=== PATIENT | male | born 1990 | race Caucasian/White ===

== ENCOUNTER 2020-07-18 14:26 | Emergency (ER) | payer SELFPAY ==
[~2020-07-18] VITALS: Ht 193 cm; Wt 88.5 kg
[2020-07-18 14:37] VITALS: BP 133/82
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
[2020-07-18] MEDS ORDERED: HYDROCODONE/APAP 5/325MG TABLET PO ONE (15:00)
[2020-07-18] MEDS ORDERED: HYDROCODONE/APAP 5/325MG TABLET ONE (15:18)
--- NOTE | 2020-07-18 15:22 | NUR ---
MEDICATED ORDERED,RADIOLOGY CALLED FOR X-RAY AND CT
--- NOTE | 2020-07-18 16:30 | NUR ---
Patient alert and oriented x4. Patient discharged to home in stable condition. Written and verbal after care instructions given. Patient verbalizes understanding of instruction.
== END 2020-07-18 16:30 | disposition home or self-care (01) ==
LOC: ER 14:30
DX: S05.11XA Contusion of eyeball and orbital tissues, right eye, initial encounter (principal); M25.512 Pain in left shoulder; M54.6 Pain in thoracic spine; Y04.0XXA Assault by unarmed brawl or fight, initial encounter; Y93.89 Activity, other specified; Y92.89 Other specified places as the place of occurrence of the external cause; Y99.8 Other external cause status
CPT/HCPCS: 70450-TC; 70486-TC; 72074-TC; 73030-TC

== ENCOUNTER 2020-07-21 09:22 | Emergency (ER) | payer SELFPAY ==
[~2020-07-21] VITALS: Ht 193 cm; Wt 90.7 kg
[2020-07-21] MEDS ORDERED: LORAZEPAM 1 MG TABLET PO ONE (09:30)
--- NOTE | 2020-07-21 09:30 | NUR ---
DR. MANJARREZ AT BEDSIDE FOR EVAL.
[2020-07-21] MEDS ORDERED: LORAZEPAM 1 MG TABLET ONE (09:32)
--- NOTE | 2020-07-21 09:38 | NUR ---
PATIENT A/OX4, IN NO DISTRESS. Patient discharged to home in stable condition. Written and verbal after care instructions given. Patient verbalizes understanding of instruction. RESOURCES PROVIDED BY DR. MANJARREZ FOR [facility].
[2020-07-21 09:39] VITALS: BP 162/102
== END 2020-07-21 09:40 | disposition home or self-care (01) ==
LOC: ER 09:24
DX: F41.9 Anxiety disorder, unspecified (principal)

== ENCOUNTER → 2020-10-18 | Emergency (ER) | payer SELFPAY ==
[~2020-10-18] VITALS: Ht 193 cm; Wt 95.3 kg
--- NOTE | 2020-10-18 10:27 | NUR ---
PT SEEN AND EXAMINED BY .
--- NOTE | 2020-10-18 10:40 | NUR ---
ER PHLEB AT BEDSIDE FOR BLOOD DRAW.
[2020-10-18 10:41] LABS: BASOPHILS % (AUTO) 0.6 % (0.0-2.0); EOSINOPHILS % (AUTO) 1.1 % (0.0-6.0); HEMATOCRIT 42 % (39-51); HEMOGLOBIN 14.3 g/dL (13.5-17.5); LYMPHOCYTES # (AUTO) 1.7 K/uL (0.8-4.8); LYMPHOCYTES % (AUTO) 32.9 % (20.0-44.0); MEAN CORPUSCULAR HGB CONC 34 g/dl (31.0-36.0); MEAN CORPUSCULAR VOLUME 90 fL (80-96); MONOCYTES # (AUTO) 0.4 K/uL (0.1-1.30); MONOCYTES % (AUTO) 7.8 % (2.0-12.0); NEUTROPHILS # (AUTO) 3.1 K/uL (1.8-8.9); NEUTROPHILS % (AUTO) 57.6 % (43.0-81.0); PLATELET COUNT (AUTO) 252 K/uL (150-450); RED BLOOD CELL COUNT(AUTO) 4.73 MIL/uL (4.5-6.0); WHITE BLOOD COUNT (AUTO) 5.3 K/uL (4.3-11.0)
[2020-10-18 10:44] VITALS: BP 128/98
[2020-10-18 10:50] LABS: CALCIUM, SERUM 9.9 mg/dL (8.5-10.1); CARBON DIOXIDE 22 mmol/L (21-32); CHLORIDE 109 mmol/L (98-107); GLUCOSE 101 mg/dL (74-106); POTASSIUM 4.5 mmol/L (3.5-5.1); SODIUM SERUM 144 mmol/L (136-145); UREA NITROGEN, BLOOD 16 mg/dL (7-18)
[2020-10-18 10:55] LABS: ALANINE AMINOTRANSFERASE 24 U/L (12-78); ALBUMIN 4.6 g/dL (3.4-5.0); ALCOHOL, BLOOD < 3 mg/dL (0-0); ALKALINE PHOSPHATASE 68 U/L (46-116); ASPARTATE AMINOTRANSFERASE 22 U/L (15-37); BILIRUBIN,DIRECT 0.1 mg/dL (0.0-0.2); BILIRUBIN,TOTAL 0.5 mg/dL (0.2-1.0); TOTAL PROTEIN, SERUM 7.9 g/dL (6.4-8.2)
[2020-10-18 10:57] LABS: ACETAMINOPHEN 0 ug/ml (10-30)
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
== END | disposition left against medical advice (07) ==
LOC: ER 10:27
DX: R45.851 Suicidal ideations (principal)
CPT/HCPCS: 80048-TC; 80076-TC; 85025-TC; G0480